=== PATIENT | male | born 1995 | race Caucasian/White ===

== ENCOUNTER 2025-08-21 20:04 | Emergency (ER) | payer MEDICAID, SELFPAY ==
[2025-08-21 20:19] VITALS: BP 157/90; PULSE 67; RESP 19; TEMP 36.8; O2SAT 98; BMI 35.4
--- NOTE | 2025-08-21 20:26 | EDNOTE_ITS ---
ED Neck Injury Pain RME/HPI General Chief Complaint: Neck Pain/Injury Stated Complaint: RIGHT NECK TO SHOULDER PAIN Time Seen by Provider: 08/21/25 20:15 Source: patient, RN notes reviewed and old records reviewed Arrival date/time: 08/21/25 20:04 Mode of arrival: ambulatory Limitations: no limitations RME / HPI RME / HPI Narrative: 30yom presents to the ED for 3-day history of right shoulder pain radiating to right upper back/neck. No preceding injury or fall. Pain initiated after carrying a heavy ice chest on his right shoulder. Reports increased pain with ROM and palpation. No deformity or numbness/tingling reported. Patient has taken ibuprofen and Tylenol with minimal relief. Related Data Home Medications ?Medication ?Instructions ?Recorded ?Confirmed ibuprofen 600 mg tablet 600 mg PO QID PRN Fever Or P ain 01/18/21 01/18/21 Previous Rx's ?Medication ?Instructions ?Recorded ibuprofen 400 mg tablet 600 mg (1.5 x 400 mg) PO Q8H PRN 01/18/21 fever or pain #14 tabs penicillin V potassium 500 mg 500 mg PO BID #20 tabs 0 01/18/21 tablet lidocaine 5 % topical patch 1 patch topical QDAY PRN p ain #15 08/21/25 ea methocarbamol 500 mg tablet 1,000 mg (2 x 500 mg) PO Q 8H PRN 08/21/25 pain #30 tabs naproxen 500 mg tablet (Naprosyn) 500 mg PO BID PRN pa in #30 tabs 08/21/25 Allergies Allergy/AdvReac Type Severity Reaction Status Date / Time morphine AdvReac Mild Makes body Verified 08/21/25 20:08 feel hot Review of Systems Review of Systems Systems Reviewed: All systems reviewed, normal except as documented ENT Ears, Nose, Mouth, and Throat: Reports neck pain Musculoskeletal Musculoskeletal: Reports arthralgias, Reports back pain, Denies deformity, Denies joint swelling, Reports limited range of motion, Reports neck pain, Denies numbness and Denies tingling Neurologic Neurologic: Denies numbness and Denies tingling Past Medical History Past Medical History GASTROINTESTINAL: Positive Obesity Surgical History OTHER SURGICAL HX: denies pshx Social History SMOKING STATUS: Never smoker SUBSTANCE USE: does not use ALCOHOL: Never ED Exam General Limitations: Present no limitations General appearance: Present alert and in no apparent distress Head Head exam: Present atraumatic and normocephalic Eye Eye exam: Present normal appearance, PERRL and EOMI ENT ENT exam: Present normal exam and mucous membranes moist Neck Neck exam: Present normal inspection and full ROM; Absent tenderness Chest Chest inspection: Present normal inspection and symmetric chest wall rise Respiratory Respiratory exam: Present normal lung sounds bilaterally; Absent respiratory distress Cardiovascular Cardiovascular exam: Present regular rate and normal rhythm Extremities Exam Extremities exam: Present other (Mild tenderness to right posterior shoulder/upper trap. No swelling or deformity. Limited ROM 2/2 pain. 2+ radial pulse, sensation intact, 5/5 BUE environment coordinator strength) Back Exam Back exam: Present normal inspection, full ROM and tenderness (right upper trap) Neurological Exam Neurological exam: Present alert and oriented X3 Psychiatric Psychiatric exam: Present normal affect and normal mood Skin Skin exam: Present warm, dry, intact and normal color Course Quality Measures none Orders Category Date Time Status CYCLObenzaPRINE [Flexeril] Med 08/21/25 20:26 Discontinued 10 mg PO X1 ONE Ketorolac Inj [Toradol Inj] Med 08/21/25 20:26 Discontinued 30 mg IM X1 ONE Lidocaine 5% Patch Med 08/21/25 20:26 Discontinued 1 patch TOP X1 ONE Vital Signs Vital signs: Vital Signs Temperature 98.2 F 08/21/25 20:19 Pulse Rate 67 08/21/25 20:19 Respiratory Rate 19 08/21/25 20:19 Blood Pressure 157/90 H 08/21/25 20:19 Pulse Oximetry (%) 98 08/21/25 20:19 Oxygen Delivery Method Room Air 08/21/25 20:19 Neck Pain MDM Narrative MDM Narrative:: 30yom presents to the ED for 3-day history of right shoulder pain radiating to right upper back/neck. No preceding injury or fall. Pain initiated after carrying a heavy ice chest on his right shoulder. Reports increased pain with ROM and palpation. No deformity or numbness/tingling reported. Patient has taken ibuprofen and Tylenol with minimal relief. Patient is neurovascularly intact. Encouraged RICE therapy, Motrin/Tylenol prn pain. Ortho referral given for follow-up and further management as needed. Stable for discharge, RTED precautions given. Patient data External records reviewed:: [facility] previous records (09/29/21 ED visit for viral pharyngitis) Clinical information provided by:: patient Social determinants that could affect healthcare access:: none Patient has the following chronic illnesses:: Obesity How is presenting disease/condition affected by chronic disease/condition?: uneffected by Evaluation data The following diagnostics were reviewed and interpreted by me:: other (specify) (None) Lab and/or radiology exams considered but not ordered:: Shoulder x-rays: Do not suspect fracture or dislocation Interpretation Summary: na Medications / Prescriptions Medications or Prescriptions considered but not ordered:: None Medication administrations:: Medication Administration History Discontinued Medications Cyclobenzaprine HCl (Cyclobenzaprine 5 Mg Tablet) 10 mg PO X1 ONE Stop: 08/21/25 20:27 Last Admin: 08/21/25 20:42 Dose: 10 mg Documented By: FLAVIO Ketorolac Tromethamine (Ketorolac Inj 60 Mg/2 Ml Vial) 30 mg IM X1 ONE Stop: 08/21/25 20:27 Last Admin: 08/21/25 20:42 Dose: 30 mg Documented By: FLAVIO Lidocaine (Lidocaine 5% 1 Patch) 1 patch TOP X1 ONE Stop: 08/21/25 20:27 Last Admin: 08/21/25 20:44 Dose: 1 patch Documented By: FLAVIO Above medications administered in ED Consultations Consultation(s) initiated? (list below): No Diagnosis Neck Differential Diagnosis: other (Fracture, dislocation, sprain, strain, contusion, MSK pain, cervical radiculopathy) Most likely diagnosis given after review of the tests above:: Shoulder strain Admission Indicated Admission indicated?: not indicated Admission Request Was there a request for admission?: No Disposition Plan Disposition Plan: Discharge Discharge Attestation Discharge Attestation: The patient and all family members were given an opportunity to ask questions and understood the discharge instructions. Discharge instructions specifically effects, indications for sooner follow up or return to the emergency department, and the expected course of current diagnosis. Patient condition: Stable Discharge Plan Plan Patient Disposition: HOME (Self Care) Patient condition on transfer: Stable Prescriptions/Referrals Prescriptions/Med Rec: New naproxen [Naprosyn] 500 mg tablet 500 mg PO BID PRN (Reason: pain) Qty: 30 0RF methocarbamol 500 mg tablet 1,000 mg PO Q8H PRN (Reason: pain) Qty: 30 0RF lidocaine 5 % adhesive patch,medicated 1 patch topical QDAY PRN (Reason: pain) Qty: 15 0RF Rx Instructions: leave on most painful area for up to 12 hrs No Action ibuprofen 600 mg tablet 600 mg PO QID PRN (Reason: Fever Or Pain) penicillin V potassium 500 mg tablet 500 mg PO BID Qty: 20 0RF ibuprofen 400 mg tablet 600 mg PO Q8H PRN (Reason: fever or pain) Qty: 14 0RF Referrals: Azeem Mart MD [Physician, Orthopedics] Referral Note: Call to schedule an appointment as needed Problem List Clinical Impression: Right shoulder strain Patient/Caregiver Discharge Instructions Education Materials: ED Muscle Strain, Extremity Print Language: Swedish Stand Alone Forms: Ekaterina Award Info., Patient Portal Info Letter PA/CRANE OPERATOR CAB Supervising Physician PA/CRANE OPERATOR CAB Supervising Physician: Ez
[2025-08-21] MEDS: KETOROLAC INJ 60 MG/2 ML VIAL 30 MG IM (20:42)
[2025-08-21] MEDS: LIDOCAINE 5% 1 PATCH TOP (20:44)
== END 2025-08-21 21:00 | disposition home or self-care (01) ==
PROVIDERS: Emergency Provider Emergency Medicine; PCP Family Medicine
DX: S46.911A Strain of unspecified muscle, fascia and tendon at shoulder and upper arm level, right arm, initial encounter (principal); X50.9XXA Other and unspecified overexertion or strenuous movements or postures, initial encounter
CPT/HCPCS: 96372; 99283; J1885; J3490; A9270

== ENCOUNTER → 2025-11-24 | Outpatient (CLI) | payer MEDICAID, SELFPAY ==
--- NOTE | 2025-11-24 08:30 | XR_ITS ---
MRI shoulder, right, without contrast. Date and time: November 24, 2025, 2137 hours Indications right shoulder pain decreased range of motion stiffness weakness after lifting injury 3 months ago Technique: Multiple axial, sagittal and coronal sections of the shoulder have been obtained. Siemens high-resolution 1.5 [employer] MRI scanner is utilized. Axial fat-suppressed sections, TR 2350, TE 18 T2-weighted coronal fat-saturated images, TR 3500, TE 7100 T1-weighted coronal images, TR 500, TE 15 T2-weighted sagittal fat-saturated images, TR 3500, TE 57 T1-weighted sagittal sections, TR 504, TE 13. Findings: Supraspinatus tendon insertion is intact. Infraspinatus tendon insertion is intact. Subscapularis insertion is intact. Subscapularis bursa is not seen. Long head of the biceps is in the bicipital groove. No definite tear of the biceps superior labral anchor is seen. Retraction of the musculotendinous junction of the rotator cuff is not seen . Tendinosis pattern is moderate. Distance between the acromium and humeral head is 6.4 mm Atrophy of the supraspinatus muscle is not seen. Atrophy of the infraspinatus muscle is not seen. Sagittal sections demonstrate a horizontal acromion. Acromioclavicular joint demonstrates mild osteoarthritis . Osacromiale is not identified. Labral margins intact. Bony glenoid fossa on the sagittal sections does not demonstrate osseous defect. Occult fracture or area of avascular necrosis is not seen. Acromioclavicular joint separation is not visible. Defect in the posterolateral margin of the humeral head is not seen Impression: Rotator cuff and labral margins intact
== END | disposition home or self-care (01) ==
LOC: SMRI 07:54
PROVIDERS: PCP Physician Assistant; Referring Provider Physician Assistant; Visit Provider Physician Assistant
DX: M25.511 Pain in right shoulder (principal); S49.91XS Unspecified injury of right shoulder and upper arm, sequela; X58.XXXS Exposure to other specified factors, sequela
CPT/HCPCS: 73221